=== PATIENT | female | born 1965 | race Caucasian/White ===

== ENCOUNTER 2020-07-16 14:21 | Emergency (ER) | payer BC, MEDICAID, OTHER, SELFPAY ==
[~2020-07-16] VITALS: Ht 172.7 cm; Wt 69.8 kg
--- NOTE | 2020-07-16 14:54 | NUR ---
PT CAME IN STATING "I WANT TO DETOX FROM ALCOHOL". PT REPORTS DRINKING 1/2 GALLON OF VODKA BEFORE COMING IN TODAY. PT ALSO STATES SHE RECENTLY MOVED TO [place] AND WAS SOBER FOR 6 MONTHS PRIOR TO THE MOVE AND RELAPSED WHEN SHE GOT HERE. PT EMOTIONAL AND DRY HEAVING. LABS DRAWN. EKG COMPLETE. CONNECTED TO ALL MONITORING EQUIPMENT.
[2020-07-16] MEDS ORDERED: ONDANSETRON 2MG/ML, 2ML IVPush ONE (15:00)
[2020-07-16] MEDS ORDERED: SODIUM CHLORIDE 0.9% 1,000ML IVBOLUS ONE (15:00)
[2020-07-16 15:05] LABS: BASOPHILS % (AUTO) 1 % (0-1); EOSINOPHILS % (AUTO) 0 % (1-7); LYMPHOCYTES % (AUTO) 31 % (22-44); MEAN CORPUSCULAR HEMOGLOBIN 29.1 pg (27.0-34.8); MEAN CORPUSCULAR HGB CONC 33.5 g/dL (32.4-35.8); MEAN PLATELET VOLUME 6.9 fL (7.4-10.4); MONOCYTES % (AUTO) 6 % (2-9); NEUTROPHILS % (AUTO) 62 % (42-75); PLATELET COUNT 505 x10^3/uL (130-400); RED BLOOD COUNT 4.58 x10^6/uL (3.82-5.3); RED CELL DISTRIBUTION WIDTH 13.6 % (9.6-15.2)
[2020-07-16 15:08] LABS: ALANINE AMINOTRANSFERASE 66 U/L (12-78); ALBUMIN 4.2 g/dL (3.4-5.0); ANION GAP 8 mmol/L (5-15); CALCIUM 8.3 mg/dL (8.5-10.1); CHLORIDE 101 mmol/L (98-107); CREATININE 0.86 mg/dL (0.55-1.02)
[2020-07-16] MEDS ORDERED: ONDANSETRON 2MG/ML, 2ML ONE (15:08)
[2020-07-16 15:10] LABS: ALKALINE PHOSPHATASE 137 U/L (45-117); BILIRUBIN,TOTAL 0.3 mg/dL (0.2-1.0); TOTAL PROTEIN 7.6 g/dL (6.4-8.2)
--- NOTE | 2020-07-16 15:11 | NUR ---
ASSUMED CARE OF PT. PIV STARTED. MEDICATED PER EMAR. PT IS TACHY AT 108. NONLABORED BREATHING. NADN.
[2020-07-16 15:16] LABS: MD NO
[2020-07-16] MEDS ORDERED: KETOROLAC 30 MG/1 ML ONE (15:51)
--- NOTE | 2020-07-16 15:55 | NUR ---
PT REPORTS THAT SHE HAS 08/22 R LBP, MD NOTIFIED AND PT MEDICATED ORDERED. PT REPORTS N IMPROVED. GERARDO. JANEEN.
[2020-07-16] MEDS ORDERED: KETOROLAC 30 MG/1 ML IVPush ONE (16:30)
--- NOTE | 2020-07-16 17:00 | NUR ---
AMBULATORY WITH STEADY GAIT TO RESTROOM. RETURNED TO ROOM W/O INCIDENT.
[2020-07-16] MEDS ORDERED: PROMETHAZINE 25 MG/ML, 1ML ONE (17:07)
--- NOTE | 2020-07-16 17:07 | NUR ---
PT IS STILL HAS N AND IS DRY MD GERARD NOTIFIED. SHE WAS MEDICATED ORDERED.
[2020-07-16] MEDS ORDERED: PROMETHAZINE 25 MG/ML, 1ML IM ONE (17:30)
--- NOTE | 2020-07-16 17:53 | NUR ---
PT REPORTS N IMPROVED AND HAS NOT HAD ANY DRY HEAVES. VSS, REGULAR UNLABORED RESP. NADN, RESTING.
[2020-07-16 18:08] VITALS: BP 132/90
--- NOTE | 2020-07-16 18:09 | NUR ---
PT UPDATED ON PLAN TO DC. BREANNA FINN'D. VSS. VERNON.
--- NOTE | 2020-07-16 18:28 | NUR ---
Patient given discharge instructions and they have confirmed that they understand the instructions. Resources included. Patient ambulatory with steady gait.
== END 2020-07-16 18:30 | disposition home or self-care (01) ==
LOC: ED 18:24
DX: F10.120 Alcohol abuse with intoxication, uncomplicated (principal); F32.9 Major depressive disorder, single episode, unspecified; R11.2 Nausea with vomiting, unspecified; R00.0 Tachycardia, unspecified; Y90.0 Blood alcohol level of less than 20 mg/100 ml
CPT/HCPCS: 36415; 80053; 80320; 83690; 83735; 85025; 93005; 96361; 96372; 96374; 96375; 99285; J1885; J2405; J2550; J7030; G0480